=== PATIENT | male | born 1965 | race Caucasian/White ===

== ENCOUNTER 2020-05-01 15:56 | Outpatient (CLI) | payer BC | END 2020-05-01 15:57 | disposition home or self-care (01) | LOC: CSHWCC 15:56 | PROVIDERS: ATTEND Nurse Practitioner Family | DX: L98.499 Non-pressure chronic ulcer of skin of other sites with unspecified severity (principal); K61.0 Anal abscess; D51.0 Vitamin B12 deficiency anemia due to intrinsic factor deficiency; H35.3230 Exudative age-related macular degeneration, bilateral, stage unspecified; G89.11 Acute pain due to trauma; I10 Essential (primary) hypertension | CPT/HCPCS: 99212; G0463 ==

== ENCOUNTER 2020-05-22 10:04 | Outpatient (CLI) | payer BC | END 2020-05-22 10:05 | disposition home or self-care (01) | LOC: CSHWCC 10:04 | PROVIDERS: ATTEND Nurse Practitioner Family | DX: L98.499 Non-pressure chronic ulcer of skin of other sites with unspecified severity (principal); K61.0 Anal abscess; D51.0 Vitamin B12 deficiency anemia due to intrinsic factor deficiency; G89.11 Acute pain due to trauma; H35.3230 Exudative age-related macular degeneration, bilateral, stage unspecified; I10 Essential (primary) hypertension | CPT/HCPCS: 99213; G0463 ==

== ENCOUNTER 2020-06-05 12:58 | Outpatient (CLI) | payer BC | END 2020-06-05 12:59 | disposition home or self-care (01) | LOC: CSHWCC 12:58 | PROVIDERS: ATTEND Nurse Practitioner Family | DX: L98.499 Non-pressure chronic ulcer of skin of other sites with unspecified severity (principal); K61.0 Anal abscess; D51.0 Vitamin B12 deficiency anemia due to intrinsic factor deficiency; G89.11 Acute pain due to trauma; H35.3230 Exudative age-related macular degeneration, bilateral, stage unspecified; I10 Essential (primary) hypertension | CPT/HCPCS: 99213; G0463 ==